=== PATIENT | female | born 1985 | race Caucasian/White ===

== ENCOUNTER 2016-12-16 16:09 | Emergency (ER) | payer OTHER, MEDICAID ==
[2016-12-16 16:24] VITALS: RESP 16; O2SAT 95
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
[2016-12-16] MEDS ORDERED: IBUPROFEN 600 MG TAB PO ONE (17:01)
[2016-12-16 17:32] VITALS: BP 112/80; PULSE 95; TEMP 98.2
== END 2016-12-16 17:33 | disposition home or self-care (01) ==
DX: S09.90XA Unspecified injury of head, initial encounter (principal); S16.1XXA Strain of muscle, fascia and tendon at neck level, initial encounter; S80.02XA Contusion of left knee, initial encounter; V47.5XXA Car driver injured in collision with fixed or stationary object in traffic accident, initial encounter; Y92.410 Unspecified street and highway as the place of occurrence of the external cause

== ENCOUNTER 2017-06-30 10:11 | Emergency (ER) | payer MEDICAID, OTHER ==
--- NOTE | 2017-06-30 10:31 | EDPHY ---
H & P Time Seen by Provider: 06/30/17 10:21 HPI/ROS: CHIEF COMPLAINT: Chest pain and palpitations HISTORY OF PRESENT ILLNESS: Patient was sent from her office at [facility] for chest CT to evaluate for pulmonary embolism. The patient has a history of factor 5 Leiden, she was diagnosed when her mother was diagnosed with factor 5 Leiden after having had multiple DVT and pulmonary embolism. The patient presents with chest pain and palpitations for the past 2 days. Intermittent palpitations at rest associated with central chest pain with dyspnea and nausea. No diaphoresis and no vomiting. She does have associated anxiety and fatigue. Chest pain does not radiate. Not exertional. REVIEW OF SYSTEMS: Eye: no change in vision ENT: no sore throat Cardiac: HPI Pulmonary: Not coughing and no hemoptysis Abdomen: no vomiting, diarrhea, abdominal pain Musculoskeletal: Ongoing bilateral leg pain on gabapentin Skin: no rash Neuro: no headache Constitutional: no fever : no urinary symptoms A comprehensive 10 point review of systems is otherwise negative aside from elements mentioned in the history of present illness. PAST MEDICAL HISTORY: Includes factor 5 Leiden, depression and anxiety, peripheral neuropathy on gabapentin. She is prescribed propranolol for her anxiety and gabapentin for the neuropathy but has not taken either 1 recently or today. Social history: Nonsmoker, under lot of stress with recent homelessness. General Appearance: Alert and conversant, cooperative. Eyes: No scleral icterus. ENT, Mouth: Normal mucous membranes. Respiratory: Normal respiratory effort, breath sounds equal, lungs are clear to auscultation. Cardiovascular: Regular rate and rhythm. Tachycardic. Gastrointestinal: Abdomen is soft and non tender. Neurological: Alert, face symmetric, normal motor and sensory in extremities. Skin: Warm and dry, no rashes. Musculoskeletal: No peripheral edema. Psychiatric: Moderately anxious. Emergency Department course/MDM: Patient moderately high risk for pulmonary embolism, was sent here for chest CT. I-STAT and chest CT discussed and consented, EKG is normal. Troponin ordered. Case management to see in the emergency department for social issues. 1219: Troponin negative, EKG normal, I think that GA or ACS is unlikely, CT angiogram of the chest is pending. 1315: Results discussed, symptoms more likely due to stress and anxiety, no pulmonary embolism by CT scanning. Smoking Status: Never smoked Constitutional: Initial Vital Signs Temperature (C) 36.6 C 06/30/17 10:14 Heart Rate 108 H 06/30/17 10:14 Respiratory Rate 18 06/30/17 10:14 Blood Pressure 135/90 H 06/30/17 10:14 O2 Sat (%) 98 06/30/17 10:14 O2 Delivery Mode Room Air Allergies/Adverse Reactions: No Known Allergies Allergy (Verified 06/30/17 10:12) Home Medications: Medication Instructions Recorded NK [No Known Home Meds] 06/30/17 Medical Decision Making - Diagnostics EKG Interpretation: 12-lead EKG interpreted by me; official reading is in trace master. My interpretation is normal sinus rhythm, normal intervals, rate 110, no ischemic changes. Imaging Results: Imaging Impressions Chest/Thorax CTA 06/30/17 11:52 Impression: 1. No definite pulmonary thromboemboli. 2. Incidental 2 mm left upper lobe subpleural nodule probably intrapulmonary lymph node. The patient is at high risk for lung cancer, a 12 month follow-up CT is considered optional per Fleischner guidelines. Partial course Negative CT angio of the chest by Dr. Vargas, normal study, no pulmonary embolism. Imaging: Discussed imaging studies w/ scallop cutter Radiologist Differential Diagnosis: Differential diagnosis considered for chest pain including but not limited to myocardial ischemia, aortic dissection, pericarditis, pulmonary embolus, chest wall pain, pleural inflammation and pulmonary infectious causes. - Data Points Laboratory Results: Laboratory Results 06/30/17 11:19 06/30/17 11:19 06/30/17 06/30/17 06/30/17 11:25 11:19 11:19 WBC RBC Hgb POC Hgb 14.3 gm/dL gm/dL (12.6-16.3) Hct POC Hct 42 % % (38-47) MCV MCH MCHC RDW Plt Count MPV Neut % (Auto) Lymph % (Auto) [place] % (Auto) Eos % (Auto) Baso % (Auto) Nucleat RBC Rel Count Absolute Neuts (auto) Absolute Lymphs (auto) Absolute Monos (auto) Absolute Eos (auto) Absolute Basos (auto) Absolute Nucleated RBC Immature Gran % Immature Gran # POC Sodium 143 mEq/L mEq/L (135-145) Sodium 143 mEq/L mEq/L (135-145) POC Potassium 3.9 mEq/L mEq/L (3.3-5.0) Potassium 4.3 mEq/L mEq/L (3.3-5.0) POC Chloride 108 mEq/L mEq/L (97-110) Chloride 113 mEq/L H mEq/L (97-110) Carbon Dioxide 21 mEq/l L mEq/l (22-31) Anion Gap 9 mEq/L mEq/L (8-16) POC BUN 20 mg/dL mg/dL (7-23) BUN 20 mg/dL mg/dL (7-23) Creatinine 0.7 mg/dL mg/dL (0.6-1.0) POC Creatinine 0.8 mg/dL mg/dL (0.6-1.0) Estimated GFR > 60 Glucose 105 mg/dL H mg/dL (70-100) POC Glucose 115 mg/dL H mg/dL (70-100) Calcium 9.2 mg/dL mg/dL (8.5-10.4) Troponin I < 0.012 ng/mL ng/mL (0.000-0.034) Beta HCG, Qual NEGATIVE 06/30/17 11:19 WBC 8.64 10^3/uL 10^3/uL (3.80-9.50) RBC 4.93 10^6/uL 10^6/uL (4.18-5.33) Hgb 14.0 g/dL g/dL (12.6-16.3) POC Hgb Hct 42.2 % % (38.0-47.0) POC Hct MCV 85.6 fL fL (81.5-99.8) MCH 28.4 pg pg (27.9-34.1) MCHC 33.2 g/dL g/dL (32.4-36.7) RDW 13.2 % % (11.5-15.2) Plt Count 231 10^3/uL 10^3/uL (150-400) MPV 9.8 fL fL (8.7-11.7) Neut % (Auto) 71.8 % % (39.3-74.2) Lymph % (Auto) 21.2 % % (15.0-45.0) [place] % (Auto) 5.4 % % (4.5-13.0) Eos % (Auto) 0.3 % L % (0.6-7.6) Baso % (Auto) 0.8 % % (0.3-1.7) Nucleat RBC Rel Count 0.0 % % (0.0-0.2) Absolute Neuts (auto) 6.20 10^3/uL 10^3/uL (1.70-6.50) Absolute Lymphs (auto) 1.83 10^3/uL 10^3/uL (1.00-3.00) Absolute Monos (auto) 0.47 10^3/uL 10^3/uL (0.30-0.80) Absolute Eos (auto) 0.03 10^3/uL 10^3/uL (0.03-0.40) Absolute Basos (auto) 0.07 10^3/uL 10^3/uL (0.02-0.10) Absolute Nucleated RBC 0.00 10^3/uL 10^3/uL (0-0.01) Immature Gran % 0.5 % % (0.0-1.1) Immature Gran # 0.04 10^3/uL 10^3/uL (0.00-0.10) POC Sodium Sodium POC Potassium Potassium POC Chloride Chloride Carbon Dioxide Anion Gap POC BUN BUN Creatinine POC Creatinine Estimated GFR Glucose POC Glucose Calcium Troponin I Beta HCG, Qual Medications Given: Discontinued Medications Diphenhydramine HCl (Benadryl Injection) 50 mg IVP EDNOW ONE Stop: 06/30/17 12:42 Last Admin: 06/30/17 12:41 Dose: 50 mg Sodium Chloride (Ns) 1,000 mls @ 0 mls/hr IV EDNOW ONE; Wide Open PRN Reason: Protocol Stop: 06/30/17 10:36 Last Admin: 06/30/17 11:17 Dose: 1,000 mls Lorazepam (Ativan Injection) 1 mg IVP EDNOW ONE Stop: 06/30/17 11:19 Last Admin: 06/30/17 11:18 Dose: 1 mg Lorazepam (Ativan Injection) 1 mg IVP EDNOW ONE Stop: 06/30/17 12:24 Last Admin: 06/30/17 12:24 Dose: 1 mg Point of Care Test Results: 06/30/17 11:25 POC Sodium 143 POC Potassium 3.9 POC Chloride 108 POC BUN 20 POC Creatinine 0.8 POC Glucose 115 H Departure - Departure Disposition: Home, Routine, Self-Care Clinical Impression: Anxiety Chest pain Qualifiers: Chest pain type: unspecified Qualified Code(s): R07.9 - Chest pain, unspecified Condition: Good Instructions: Chest Pain (ED) Additional Instructions: No PE or blood clot on your chest CT. Normal EKG and troponin. Referrals: SEDA SEVERINO [Other] - As per Instructions
[2017-06-30] MEDS ORDERED: NS 1,000 ML IV ONE (10:35)
--- NOTE | 2017-06-30 10:37 | CPEKG ---
Heart Rate: 110 RR Interval: 545 P-R Interval: 160 QRSD Interval: 84 QT Interval: 344 QTC Interval: 466 P [place]: 68 QRS [place]: 87 T Wave [place]: 55 EKG Severity - OTHERWISE NORMAL ECG - EKG Impression: SINUS TACHYCARDIA Electronically Signed By: Quinn Grady 30-Jun-2017 12:11:54
[2017-06-30] MEDS ORDERED: LORazepam 2 MG/ML INJ ONE (10:44)
[2017-06-30] MEDS ORDERED: LORazepam 2 MG/ML INJ IVP ONE ×2 (11:18→12:23)
[2017-06-30 11:35] LABS: PLATELET COUNT 231 10^3/uL (150-400)
[2017-06-30] MEDS ORDERED: IOPAMIDOL (ISOVUE 370) 100 ML BTL IV ONE (12:02)
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
[2017-06-30 13:32] VITALS: BP 131/93
== END 2017-06-30 13:33 | disposition home or self-care (01) ==
LOC: EEVIPCON 10:11
DX: R07.9 Chest pain, unspecified (principal); F41.9 Anxiety disorder, unspecified; E86.9 Volume depletion, unspecified
CPT/HCPCS: 82947-QW; 96374; J1200; J2060; Q9967